=== PATIENT | male | born 1950 | race Caucasian/White ===

== ENCOUNTER 2018-08-10 10:32 | Inpatient (IN) ==
[2018-08-10] MEDS ORDERED: POTASSIUM CHLORIDE RIDER 10 MEQ in PREMIX 1 EACH IV PRN (11:00)
[2018-08-10] MEDS ORDERED: ASPIRIN 325 MG TABLET PO ONE (11:00)
[2018-08-10] MEDS ORDERED: SODIUM CHLORIDE 0.9% 1,000 ML IV SCH (11:00)
[2018-08-10] MEDS ORDERED: MAGNESIUM SULF RIDER 2 GM in PREMIX 1 EACH IV PRN ×2 (11:00→14:17)
[2018-08-10] MEDS ORDERED: diphenhydrAMINE CAP 25 MG CAPSULE PO ONE (11:00)
[2018-08-10] MEDS ORDERED: DIAZEPAM 5 MG TABLET PO ONE (11:00)
[2018-08-10] MEDS ORDERED: DIAZEPAM 5 MG TABLET ONE (12:37)
[2018-08-10] MEDS ORDERED: ASPIRIN 325 MG TABLET ONE (12:37)
[2018-08-10] MEDS ORDERED: diphenhydrAMINE CAP 25 MG CAPSULE ONE (12:37)
[2018-08-10] MEDS ORDERED: LIDOCAINE 1% 20 ML VIAL ONE (12:51)
[2018-08-10] MEDS ORDERED: fentaNYL 100 MCG/2 ML VIAL ONE (12:56)
[2018-08-10] MEDS ORDERED: MIDAZOLAM 2 MG/2 ML VIAL ONE (12:56)
[2018-08-10] MEDS ORDERED: HEPARIN 5,000 UNIT/1 ML VIAL ONE (13:23)
[2018-08-10] MEDS ORDERED: MAGNESIUM SULF RIDER 4 GM in PREMIX 1 EACH IV PRN (14:17)
[2018-08-10] MEDS ORDERED: LACTULOSE 20 GM/30 ML UDCUP PO PRN (14:21)
[2018-08-10] MEDS ORDERED: DEXTROSE 50% 25 GM/50 ML SYRINGE IV PRN (14:21)
[2018-08-10] MEDS ORDERED: ACETAMINOPHEN 325 MG TABLET PO PRN (14:21)
[2018-08-10] MEDS ORDERED: ONDANSETRON 4 MG/2 ML VIAL IV PRN (14:21)
[2018-08-10] MEDS ORDERED: GLUCAGON 1 MG VIAL IM PRN ×2 (14:21→17:41)
[2018-08-10] MEDS ORDERED: NITROGLYCERIN SL 0.4 MG TABLET SL PRN (14:28)
[2018-08-10] MEDS: PANTOPRAZOLE 40 MG TABLET PO SCH (17:20)
[2018-08-10] MEDS ORDERED: DEXTROSE 50% 25 GM/50 ML VIAL IV PRN (17:41)
[2018-08-10] MEDS: METHOCARBAMOL 500 MG TABLET PO SCH (20:47)
[2018-08-10] MEDS: ENOXAPARIN 30 MG/0.3 ML SYRINGE SUBCUT SCH (20:47)
[2018-08-10] MEDS: INSULIN REGULAR 100 UNIT/ML SUBCUT SCH (20:54)
[2018-08-11 05:03] LABS: Basophils % 0.4 % (0.0-0.8); Eosinophils # 0.1 10*3/uL (0.0-0.87); Eosinophils % 1.5 % (0.00-10.9); Hematocrit 43.8 VOL% (42.0-52.0); Immature Granulocytes % 0.3 %; Immature Granulocytes Absolute 0.03 #; Lymphocytes # 0.9 10*3/uL (1.4-4.0); Mean Corpuscular Hemoglobin 29 PG (27-34); Mean Corpuscular Volume 89.4 FL (87-102); Mean Platelet Volume 10.2 FL (9.6-12.0); Monocytes # 0.8 10*3/uL (0.11-0.8); Monocytes % 9.2 % (1.7-12.7); Neutrophils # 7.1 10*3/uL (1.4-7.4); Neutrophils % 78.6 % (38.7-73.9); Platelet Count 163 T/CUMM (130-400); White Blood Count 9.1 T/CUMM (4-12)
[2018-08-11 05:22] LABS: Albumin 3.5 G/DL (3.4-5.0); Bilirubin,Total 0.9 MG/DL (0.2-1.0); Calcium 8.5 MG/DL (8.5-10.1); Osmolality,Calculated 277.5 MOS/KG (273-304); Potassium 4.2 MMOL/L (3.5-5.1); Total Protein 6.9 G/DL (6.4-8.3)
[2018-08-11] MEDS: LEVOTHYROXINE 88 MCG TABLET PO SCH (06:50)
[2018-08-11] MEDS: INSULIN REGULAR 100 UNIT/ML SUBCUT SCH ×4 (08:04→21:18)
[2018-08-11] MEDS: METHOCARBAMOL 500 MG TABLET PO SCH ×2 (08:50→21:17)
[2018-08-11] MEDS: SIMVASTATIN 10 MG TABLET PO SCH (08:50)
[2018-08-11] MEDS: MULTIVITAMIN (CENTRUM) TABLET PO SCH (08:50)
[2018-08-11] MEDS: PANTOPRAZOLE 40 MG TABLET PO SCH (08:50)
[2018-08-11] MEDS: ASPIRIN 325 MG TABLET PO SCH (08:50)
[2018-08-11] MEDS: amLODIPine 5 MG TABLET PO SCH (08:50)
[2018-08-11] MEDS: METOPROLOL SUCCINATE XL 25 MG TABLET PO SCH (08:50)
[2018-08-11] MEDS: traMADol 50 MG TABLET PO PRN ×2 (08:51→21:16)
[2018-08-11] MEDS: ENOXAPARIN 30 MG/0.3 ML SYRINGE SUBCUT SCH ×2 (08:53→21:17)
[2018-08-11] MEDS ORDERED: DEXTROSE 50% 25 GM/50 ML SYRINGE IV PRN (08:55)
[2018-08-11] MEDS ORDERED: GLUCAGON 1 MG VIAL IM PRN (08:55)
[2018-08-11] MEDS ORDERED: SODIUM CHLORIDE 0.9% 1,000 ML IV SCH (09:00)
[2018-08-11] MEDS: CHLORHEXIDINE 0.12% ORAL RINSE 60 ML BOTTLE SWISH/SPIT SCH ×2 (09:32→21:17)
[2018-08-12] MEDS: LEVOTHYROXINE 88 MCG TABLET PO SCH (06:28)
[2018-08-12] MEDS: INSULIN REGULAR 100 UNIT/ML SUBCUT SCH ×4 (07:57→22:25)
[2018-08-12] MEDS: amLODIPine 5 MG TABLET PO SCH (09:31)
[2018-08-12] MEDS: METHOCARBAMOL 500 MG TABLET PO SCH ×2 (09:31→21:56)
[2018-08-12] MEDS: MULTIVITAMIN (CENTRUM) TABLET PO SCH (09:31)
[2018-08-12] MEDS: SIMVASTATIN 10 MG TABLET PO SCH (09:31)
[2018-08-12] MEDS: METOPROLOL SUCCINATE XL 25 MG TABLET PO SCH (09:31)
[2018-08-12] MEDS: traMADol 50 MG TABLET PO PRN ×2 (09:31→22:18)
[2018-08-12] MEDS: PANTOPRAZOLE 40 MG TABLET PO SCH (09:31)
[2018-08-12] MEDS: ASPIRIN 325 MG TABLET PO SCH (09:31)
[2018-08-12] MEDS: CHLORHEXIDINE 0.12% ORAL RINSE 60 ML BOTTLE SWISH/SPIT SCH ×2 (09:31→22:19)
[2018-08-12] MEDS: ENOXAPARIN 30 MG/0.3 ML SYRINGE SUBCUT SCH ×2 (09:33→22:18)
[2018-08-13] MEDS: INSULIN REGULAR 100 UNIT/ML SUBCUT SCH ×4 (08:16→20:12)
[2018-08-13] MEDS: ENOXAPARIN 30 MG/0.3 ML SYRINGE SUBCUT SCH ×2 (09:06→20:59)
[2018-08-13] MEDS: METOPROLOL SUCCINATE XL 25 MG TABLET PO SCH (09:07)
[2018-08-13] MEDS: MULTIVITAMIN (CENTRUM) TABLET PO SCH (09:07)
[2018-08-13] MEDS: LEVOTHYROXINE 88 MCG TABLET PO SCH (09:07)
[2018-08-13] MEDS: PANTOPRAZOLE 40 MG TABLET PO SCH (09:07)
[2018-08-13] MEDS: METHOCARBAMOL 500 MG TABLET PO SCH ×2 (09:07→20:59)
[2018-08-13] MEDS: amLODIPine 5 MG TABLET PO SCH (09:07)
[2018-08-13] MEDS: ASPIRIN 325 MG TABLET PO SCH (09:07)
[2018-08-13] MEDS: SIMVASTATIN 10 MG TABLET PO SCH (09:08)
[2018-08-13] MEDS: CHLORHEXIDINE 0.12% ORAL RINSE 60 ML BOTTLE SWISH/SPIT SCH ×2 (09:08→20:59)
[2018-08-13] MEDS: LOPERAMIDE 2 MG CAPSULE PO PRN ×2 (17:10→20:59)
[2018-08-14 05:29] LABS: Basophils % 0.2 % (0.0-0.8); Eosinophils # 0.2 10*3/uL (0.0-0.87); Hematocrit 44.1 VOL% (42.0-52.0); Hemoglobin 14.4 GM/DL (14.0-18.0); Immature Granulocytes % 0.4 %; Immature Granulocytes Absolute 0.04 #; Lymphocytes # 1.3 10*3/uL (1.4-4.0); Lymphocytes % 13.9 % (21.2-54.2); Mean Corpuscular HGB Conc 32.7 GM/DL (32-36); Mean Corpuscular Hemoglobin 29 PG (27-34); Mean Platelet Volume 10.5 FL (9.6-12.0); Monocytes # 1.1 10*3/uL (0.11-0.8); Monocytes % 12.6 % (1.7-12.7); Neutrophils # 6.4 10*3/uL (1.4-7.4); Neutrophils % 70.9 % (38.7-73.9); Platelet Count 216 T/CUMM (130-400); Red Cell Distribution Width 13.1 % (9.3-17.3); White Blood Count 9.1 T/CUMM (4-12)
[2018-08-14 05:44] LABS: Calcium 9.6 MG/DL (8.5-10.1); Osmolality,Calculated 280.4 MOS/KG (273-304); Potassium 3.9 MMOL/L (3.5-5.1)
[2018-08-14] MEDS: LEVOTHYROXINE 88 MCG TABLET PO SCH (06:30)
[2018-08-14 07:50] LABS: Allen Test Positive; Pt O2 Delivery Device Room Air
[2018-08-14 07:51] LABS: ABG Base Excess -1.4 MMOL/L (-2.5-2.5); ABG HCO3 23.3 MMOL/L (20-26); ABG Oxygen Saturation 97.7 % (95-100); ABG PCO2 38.6 MM HG (35-48); ABG PH 7.389 (7.35-7.45); ABG PO2 99.1 MM HG (80-95); ABG TCO2 19.9 MMOL/L (23-27)
[2018-08-14 08:50] LABS: Basophils % 0.2 % (0.0-0.8); Eosinophils # 0.1 10*3/uL (0.0-0.87); Eosinophils % 1.3 % (0.00-10.9); Hematocrit 43.1 VOL% (42.0-52.0); Hemoglobin 13.8 GM/DL (14.0-18.0); Immature Granulocytes % 0.4 %; Immature Granulocytes Absolute 0.04 #; Lymphocytes # 0.9 10*3/uL (1.4-4.0); Lymphocytes % 9.1 % (21.2-54.2); Mean Corpuscular Hemoglobin 29 PG (27-34); Mean Platelet Volume 9.9 FL (9.6-12.0); Neutrophils # 7.7 10*3/uL (1.4-7.4); Platelet Count 191 T/CUMM (130-400); Red Blood Count 4.79 MC/CUMM (3.8-5.5); Red Cell Distribution Width 13.2 % (9.3-17.3); White Blood Count 9.8 T/CUMM (4-12)
[2018-08-14] MEDS ORDERED: CEFUROXIME INJ 1,500 MG in SYRINGE 1 EACH IV ONE (08:55)
[2018-08-14] MEDS: METHOCARBAMOL 500 MG TABLET PO SCH ×2 (08:56→21:45)
[2018-08-14] MEDS: INSULIN REGULAR 100 UNIT/ML SUBCUT SCH ×4 (08:56→21:45)
[2018-08-14] MEDS: PANTOPRAZOLE 40 MG TABLET PO SCH (08:56)
[2018-08-14] MEDS: MULTIVITAMIN (CENTRUM) TABLET PO SCH (08:56)
[2018-08-14] MEDS: LOPERAMIDE 2 MG CAPSULE PO PRN ×3 (08:56→21:46)
[2018-08-14] MEDS: LOSARTAN 25 MG TABLET PO SCH (08:56)
[2018-08-14] MEDS: METOPROLOL SUCCINATE XL 25 MG TABLET PO SCH (08:56)
[2018-08-14] MEDS: SIMVASTATIN 10 MG TABLET PO SCH (08:56)
[2018-08-14] MEDS: ASPIRIN 325 MG TABLET PO SCH (08:56)
[2018-08-14] MEDS: CHLORHEXIDINE 0.12% ORAL RINSE 60 ML BOTTLE SWISH/SPIT SCH ×2 (08:57→21:45)
[2018-08-14] MEDS: CHLORHEXIDINE 4% SOLN 118 ML BOTTLE TOP SCH ×3 (08:57→21:45)
[2018-08-14] MEDS ORDERED: SODIUM CHLORIDE 0.9% 1,000 ML IV SCH (09:00)
[2018-08-14 09:07] LABS: Albumin 3.6 G/DL (3.4-5.0); Bilirubin,Total 0.6 MG/DL (0.2-1.0); Calcium 8.9 MG/DL (8.5-10.1); Osmolality,Calculated 278.7 MOS/KG (273-304); Total Protein 7.5 G/DL (6.4-8.3)
[2018-08-15] MEDS ORDERED: PAPAVERINE 60 MG/2 ML VIAL ONE (04:57)
[2018-08-15] MEDS ORDERED: VANCOMYCIN 1,000 MG VIAL ONE (04:57)
[2018-08-15] MEDS ORDERED: LORazepam 1 MG TABLET PO ONE (05:30)
[2018-08-15] MEDS ORDERED: PANTOPRAZOLE 40 MG TABLET PO ONE (05:30)
[2018-08-15] MEDS ORDERED: CALCIUM CHLORIDE 1,000 MG/10 ML VIAL IV ONE (05:32)
[2018-08-15] MEDS ORDERED: HEPARIN/NACL 0.9% 2 UNITS/ML 500 ML IV ONE (05:32)
[2018-08-15] MEDS ORDERED: PHENYLEPHRINE DRIP 20 MG/250 ML PREMIX IV ONE (05:32)
[2018-08-15] MEDS ORDERED: MIDAZOLAM 10 MG/2 ML VIAL ONE (05:32)
[2018-08-15] MEDS ORDERED: SUFentanil 250 MCG/5 ML AMP ONE (05:32)
[2018-08-15] MEDS ORDERED: SODIUM CHLORIDE 0.9% 100 ML IV ONE (05:33)
[2018-08-15] MEDS ORDERED: AMINOCAPROIC ACID 5,000 MG/20 ML VIAL ONE (05:33)
[2018-08-15] MEDS ORDERED: SODIUM CHLORIDE 0.9% 1,000 ML IV ONE (05:33)
[2018-08-15] MEDS ORDERED: SODIUM CHLORIDE 0.9% 250 ML IV ONE (05:33)
[2018-08-15] MEDS ORDERED: VECURONIUM 10 MG VIAL IV ONE ×2 (05:33→10:14)
[2018-08-15] MEDS ORDERED: NITROGLYCERIN DRIP 50 MG/250 ML BOTTLE IV ONE (05:33)
[2018-08-15] MEDS ORDERED: LACTATED RINGERS 1,000 ML IV ONE (05:33)
[2018-08-15] MEDS ORDERED: ETOMIDATE 40 MG/20 ML VIAL IV ONE (05:33)
[2018-08-15] MEDS ORDERED: ePHEDrine 50 MG/ML AMP ONE (05:33)
[2018-08-15] MEDS: LEVOTHYROXINE 88 MCG TABLET PO SCH ×2 (05:34→10:24)
[2018-08-15] MEDS: METOPROLOL SUCCINATE XL 25 MG TABLET PO SCH ×2 (05:34→10:25)
[2018-08-15] MEDS: LOSARTAN 25 MG TABLET PO SCH ×2 (05:34→10:25)
[2018-08-15 05:44] LABS: Basophils % 0.2 % (0.0-0.8); Eosinophils # 0.2 10*3/uL (0.0-0.87); Eosinophils % 2.2 % (0.00-10.9); Hematocrit 43.1 VOL% (42.0-52.0); Hemoglobin 13.9 GM/DL (14.0-18.0); Immature Granulocytes % 0.6 %; Immature Granulocytes Absolute 0.06 #; Lymphocytes # 0.9 10*3/uL (1.4-4.0); Lymphocytes % 9.7 % (21.2-54.2); Mean Corpuscular HGB Conc 32.3 GM/DL (32-36); Mean Corpuscular Hemoglobin 29 PG (27-34); Mean Corpuscular Volume 89.8 FL (87-102); Mean Platelet Volume 10.1 FL (9.6-12.0); Monocytes # 1.1 10*3/uL (0.11-0.8); Monocytes % 11.3 % (1.7-12.7); Neutrophils # 7.3 10*3/uL (1.4-7.4); Platelet Count 210 T/CUMM (130-400); Red Cell Distribution Width 13.2 % (9.3-17.3); White Blood Count 9.7 T/CUMM (4-12)
[2018-08-15 05:55] LABS: Osmolality,Calculated 281.4 MOS/KG (273-304); Potassium 3.6 MMOL/L (3.5-5.1)
[2018-08-15] MEDS ORDERED: VANCOMYCIN INJ 1,000 MG in SODIUM CHLORIDE 0.9% 250 ML IV ONE (06:00)
[2018-08-15] MEDS ORDERED: SODIUM CHLORIDE 0.9% 1,000 ML IV SCH (06:00)
[2018-08-15 07:51] LABS: ABG Base Excess -2.6 MMOL/L (-2.5-2.5); ABG HCO3 22.2 MMOL/L (20-26); ABG Oxygen Saturation 99.8 % (95-100); ABG PH 7.381 (7.35-7.45); ABG TCO2 19.1 MMOL/L (23-27); Glucose Heart Surgery 141 MG/DL (74-106); Hemoglobin Heart Surgery 13.3 G/DL (14.0-18.0); PH Patient Temp Arterial 7.381; Patient Temperature 37 CELCIUS; Potassium Heart/CVR 3.4 MMOL/L (3.5-5.1); Sodium Heart/CVR 138 MMOL/L (135-145)
[2018-08-15 08:12] LABS: Apearance,Urine CLOUDY (Clear); Bilirubin,Urine Negative (Negative); Blood, Urine Small mg/dL (Negative); Glucose,Urine (UA) Negative (Negative); Ketones,Urine Negative (Negative); Nitrite,Urine Negative (Negative); Protein,Urine Negative; RBC,Urine 8 /HPF (0-4); Urine Color Yellow (Yellow); Urine Specific Gravity 1.013 (1.001-1.035); Urine Urobilinogen < 2.0 EU/DL (0.2-1.0); WBC,Urine 137 /HPF (0-6)
[2018-08-15] MEDS ORDERED: PHENYLEPHRINE DRIP 40 MG/250 ML PREMIX IV ONE (08:52)
[2018-08-15] MEDS ORDERED: POTASSIUM CHLORIDE RIDER 100 ML IV ONE ×2 (08:53→11:43)
[2018-08-15] MEDS ORDERED: ALBUMIN 5% 12.5 GM/250 ML VIAL IV ONE (09:08)
[2018-08-15 10:11] LABS: Hematocrit Heart Surgery 26.5 PERCENT (42-52); Hemoglobin Heart Surgery 8.5 G/DL (14.0-18.0); PCO2 Patient Temp Venous 34.1 MM HG; PH Patient Temp Venous 7.431; PO2 Patient Temp Venous 41.9 MM HG; VBG Base Excess -1.1 MEQ/L (0-4); VBG HCO3 23.3 MEQ/L (24-28); VBG Oxygen Saturation 85.3 %; VBG PCO2 37.5 MMHG (41-51); VBG PH 7.402; VBG PO2 48.1 MMHG (17-40)
[2018-08-15] MEDS ORDERED: diphenhydrAMINE 50 MG/1 ML VIAL ONE (10:14)
[2018-08-15] MEDS ORDERED: FAMOTIDINE 20 MG/2 ML VIAL IV ONE (10:14)
[2018-08-15] MEDS: MULTIVITAMIN (CENTRUM) TABLET PO SCH (10:24)
[2018-08-15] MEDS: INSULIN REGULAR 100 UNIT/ML SUBCUT SCH ×2 (10:24→14:47)
[2018-08-15] MEDS: ASPIRIN 325 MG TABLET PO SCH (10:24)
[2018-08-15] MEDS: PANTOPRAZOLE 40 MG TABLET PO SCH (10:25)
[2018-08-15] MEDS: SIMVASTATIN 10 MG TABLET PO SCH (10:25)
[2018-08-15] MEDS: METHOCARBAMOL 500 MG TABLET PO SCH (10:25)
[2018-08-15] MEDS: CHLORHEXIDINE 0.12% ORAL RINSE 60 ML BOTTLE SWISH/SPIT SCH ×2 (10:25→22:06)
[2018-08-15 10:39] LABS: Hemoglobin Heart Surgery 9.4 G/DL (14.0-18.0); PCO2 Patient Temp Venous 29.2 MM HG; PH Patient Temp Venous 7.472; Potassium Heart/CVR 3.5 MMOL/L (3.5-5.1); VBG Base Excess -1.6 MEQ/L (0-4); VBG Oxygen Saturation 89.3 %; VBG PCO2 33.7 MMHG (41-51); VBG PH 7.428; VBG PO2 52.8 MMHG (17-40)
[2018-08-15 11:11] LABS: Hematocrit Heart Surgery 27.5 PERCENT (42-52); Hemoglobin Heart Surgery 8.8 G/DL (14.0-18.0); PCO2 Patient Temp Venous 36.6 MM HG; PH Patient Temp Venous 7.432; Potassium Heart/CVR 3.9 MMOL/L (3.5-5.1); VBG Base Excess 0.4 MEQ/L (0-4); VBG HCO3 24.4 MEQ/L (24-28); VBG Oxygen Saturation 74.5 %; VBG PCO2 36.6 MMHG (41-51); VBG PH 7.432
[2018-08-15 11:26] LABS: HIV Antigen/Antibody Result Nonreactive (Nonreactive); Hepatitis B Surface Ag Quant 0.56 Index; Hepatitis B Surface Ag Result Negative (Negative); Hepatitis C Virus Ab Quant 0.03 Index; Hepatitis C Virus Ab Result Negative (Negative)
[2018-08-15 11:36] LABS: ABG Base Excess -1.1 MMOL/L (-2.5-2.5); ABG HCO3 23.5 MMOL/L (20-26); ABG Oxygen Saturation 99.8 % (95-100); ABG PCO2 38.4 MM HG (35-48); ABG PH 7.395 (7.35-7.45); ABG TCO2 21.7 MMOL/L (23-27); Glucose Heart Surgery 238 MG/DL (74-106); Hematocrit Heart Surgery 27.7 PERCENT (42-52); Hemoglobin Heart Surgery 8.9 G/DL (14.0-18.0); Ionized Calcium Arterial 1.12 MMOL/L (1.21-1.46); PCO2 Patient Temp Arterial 38.4 MMHG; PH Patient Temp Arterial 7.395; Patient Temperature 37 CELCIUS; Potassium Heart/CVR 3.3 MMOL/L (3.5-5.1); Sodium Heart/CVR 135 MMOL/L (135-145)
[2018-08-15] MEDS ORDERED: PROTAMINE SULFATE 250 MG/25 ML VIAL IV ONE (11:36)
[2018-08-15] MEDS ORDERED: DEXTROSE 5% KCL 20 MEQ 20 MEQ/1,000 ML BAG IV ONE (11:36)
[2018-08-15] MEDS ORDERED: SODIUM BICARBONATE 50 MEQ/50 ML VIAL IV ONE (11:36)
[2018-08-15] MEDS ORDERED: MAGNESIUM SULFATE 10 GM/20 ML VIAL IV ONE (11:36)
[2018-08-15] MEDS ORDERED: ALBUMIN 25% 25 GM/100 ML VIAL IV ONE (11:36)
[2018-08-15] MEDS ORDERED: MANNITOL 100 GM/500 ML BAG IV ONE (11:36)
[2018-08-15] MEDS ORDERED: HEPARIN 10,000 UNIT/10 ML VIAL ONE (11:37)
[2018-08-15] MEDS ORDERED: methylPREDNISolone SOD SUC 1,000 MG/8 ML VIAL ONE (11:37)
[2018-08-15] MEDS ORDERED: PROTAMINE SULFATE 50 MG/5 ML VIAL IV ONE ×2 (11:37→12:22)
[2018-08-15] MEDS ORDERED: FUROSEMIDE 20 MG/2 ML VIAL ONE (11:37)
[2018-08-15] MEDS ORDERED: POTASSIUM CHLORIDE 20 MEQ/10 ML VIAL ONE (11:43)
[2018-08-15] MEDS ORDERED: ESMOLOL 100 MG/10 ML VIAL IV ONE (12:30)
[2018-08-15] MEDS ORDERED: SEVOFLURANE 1 UNIT/15 MINUTE INH ONE (12:30)
[2018-08-15] MEDS: LACTATED RINGERS 1,000 ML IV PRN ×3 (12:30→18:00)
[2018-08-15] MEDS ORDERED: PHENYLEPHRINE DRIP 40 MG/250 ML PREMIX IV PRN (12:33)
[2018-08-15] MEDS ORDERED: CALCIUM CHLORIDE 1,000 MG/10 ML SYRINGE IV PRN (12:33)
[2018-08-15] MEDS ORDERED: DEXTROSE 50% 25 GM/50 ML SYRINGE IV PRN ×2 (12:33)
[2018-08-15] MEDS ORDERED: MAGNESIUM SULF RIDER 4 GM in PREMIX 1 EACH IV PRN (12:33)
[2018-08-15] MEDS ORDERED: MORPHINE 10 MG/1 ML VIAL IV PRN (12:33)
[2018-08-15] MEDS ORDERED: ACETAMINOPHEN 650 MG SUPP RECTAL PRN (12:33)
[2018-08-15] MEDS ORDERED: SODIUM CHLORIDE 0.45% 1,000 ML IV SCH ×2 (12:33)
[2018-08-15] MEDS ORDERED: INSULIN REGULAR DRIP 100 ML IV SCH (12:33)
[2018-08-15] MEDS ORDERED: INSULIN REGULAR 100 UNIT/ML IV PRN (12:33)
[2018-08-15] MEDS ORDERED: VECURONIUM 10 MG VIAL IV PRN ×2 (12:33)
[2018-08-15] MEDS ORDERED: ONDANSETRON 4 MG/2 ML VIAL IV PRN (12:33)
[2018-08-15] MEDS ORDERED: MAGNESIUM SULF RIDER 2 GM in PREMIX 1 EACH IV PRN (12:33)
[2018-08-15] MEDS ORDERED: MIDAZOLAM 10 MG/2 ML VIAL IV PRN (12:33)
[2018-08-15] MEDS ORDERED: INSULIN REGULAR 100 UNIT/ML IV ONE (12:33)
[2018-08-15] MEDS ORDERED: NITROPRUSSIDE 100 MG in DEXTROSE 5% 250 ML IV PRN (12:33)
[2018-08-15] MEDS ORDERED: LACTATED RINGERS 250 ML IV PRN (12:33)
[2018-08-15] MEDS ORDERED: MIDAZOLAM 2 MG/2 ML VIAL IV PRN (12:33)
[2018-08-15 12:38] LABS: ABG HCO3 24.5 MMOL/L (20-26); ABG Oxygen Saturation 99.3 % (95-100); ABG PCO2 36.9 MM HG (35-48); ABG PH 7.424 (7.35-7.45); ABG TCO2 21.9 MMOL/L (23-27); Glucose Heart Surgery 216 MG/DL (74-106); Hematocrit Heart Surgery 30.8 PERCENT (42-52); Potassium Heart/CVR 3.5 MMOL/L (3.5-5.1)
[2018-08-15 12:44] LABS: Basophils % 0.1 % (0.0-0.8); Eosinophils # 0.1 10*3/uL (0.0-0.87); Eosinophils % 0.7 % (0.00-10.9); Hematocrit 28.4 VOL% (42.0-52.0); Hemoglobin 9.4 GM/DL (14.0-18.0); Immature Granulocytes % 0.5 %; Immature Granulocytes Absolute 0.05 #; Lymphocytes # 0.4 10*3/uL (1.4-4.0); Lymphocytes % 4.2 % (21.2-54.2); Mean Corpuscular HGB Conc 33.1 GM/DL (32-36); Mean Corpuscular Hemoglobin 30 PG (27-34); Mean Platelet Volume 10.1 FL (9.6-12.0); Monocytes # 0.8 10*3/uL (0.11-0.8); Monocytes % 8.7 % (1.7-12.7); Neutrophils # 8.3 10*3/uL (1.4-7.4); Neutrophils % 85.8 % (38.7-73.9); Platelet Count 182 T/CUMM (130-400); Red Blood Count 3.19 MC/CUMM (3.8-5.5); Red Cell Distribution Width 13.2 % (9.3-17.3); White Blood Count 9.7 T/CUMM (4-12)
[2018-08-15 12:54] LABS: INR 1.1; PT Patient Result 11.8 SECS; Partial Thromboplastin Time 23.3 SECS (0-40)
[2018-08-15] MEDS: POTASSIUM CHLORIDE RIDER 20 MEQ in PREMIX 1 EACH IV PRN ×6 (13:00→21:05)
[2018-08-15 13:06] LABS: Anisocytosis Slight; Band Neutrophils 18 % (0-10); Lymphocytes 2 % (20-55); Platelet Estimate Normal; Segmented Neutrophils 76 % (50-85); Total Cells Counted 100
[2018-08-15] MEDS: KETOROLAC 30 MG/1 ML VIAL IV SCH ×2 (13:08→18:27)
[2018-08-15 13:14] LABS: Albumin 3.5 G/DL (3.4-5.0); Bilirubin,Total 0.9 MG/DL (0.2-1.0); Calcium 8.7 MG/DL (8.5-10.1); Osmolality,Calculated 283.5 MOS/KG (273-304); Potassium 3.5 MMOL/L (3.5-5.1); Total Protein 6.3 G/DL (6.4-8.3)
[2018-08-15 13:18] LABS: CKMB % 13.6 %
[2018-08-15 13:19] LABS: Troponin I 8.04 NG/ML (0.00-0.045)
[2018-08-15] MEDS: POTASSIUM CHLORIDE RIDER 10 MEQ in PREMIX 1 EACH IV PRN (13:35)
[2018-08-15 14:42] LABS: ABG Base Excess 0.9 MMOL/L (-2.5-2.5); ABG HCO3 25.2 MMOL/L (20-26); ABG Oxygen Saturation 99.2 % (95-100); ABG PCO2 36.6 MM HG (35-48); ABG PH 7.439 (7.35-7.45); ABG TCO2 22.4 MMOL/L (23-27); Glucose Heart Surgery 186 MG/DL (74-106); Hematocrit Heart Surgery 31.5 PERCENT (42-52); Hemoglobin Heart Surgery 10.2 G/DL (14.0-18.0); Potassium Heart/CVR 3.3 MMOL/L (3.5-5.1)
[2018-08-15] MEDS: ALBUMIN 5% 12.5 GM in PREMIX 1 EACH IV PRN ×2 (15:05→21:04)
[2018-08-15] MEDS: MORPHINE 4 MG/1 ML VIAL IV PRN ×2 (16:14→22:04)
[2018-08-15 16:49] LABS: ABG Base Excess 0.4 MMOL/L (-2.5-2.5); ABG HCO3 24.8 MMOL/L (20-26); ABG Oxygen Saturation 99.3 % (95-100); ABG PCO2 36.8 MM HG (35-48); ABG PH 7.431 (7.35-7.45); ABG TCO2 22.3 MMOL/L (23-27); Glucose Heart Surgery 164 MG/DL (74-106); Hematocrit Heart Surgery 30.3 PERCENT (42-52); Hemoglobin Heart Surgery 9.8 G/DL (14.0-18.0)
[2018-08-15 18:43] LABS: ABG Base Excess 0.4 MMOL/L (-2.5-2.5); ABG HCO3 24.8 MMOL/L (20-26); ABG Oxygen Saturation 99.3 % (95-100); ABG PCO2 37.4 MM HG (35-48); ABG PH 7.425 (7.35-7.45); Glucose Heart Surgery 152 MG/DL (74-106); Hematocrit Heart Surgery 33.3 PERCENT (42-52); Hemoglobin Heart Surgery 10.8 G/DL (14.0-18.0)
[2018-08-15] MEDS ORDERED: AMIODARONE INJ 150 MG in DEXTROSE 5% 100 ML IV ONE (19:37)
[2018-08-15] MEDS ORDERED: AMIODARONE INJ 450 MG in DEXTROSE 5% 241 ML IV SCH (20:00)
[2018-08-15 20:49] LABS: ABG Base Excess 0.2 MMOL/L (-2.5-2.5); ABG HCO3 24.6 MMOL/L (20-26); ABG Oxygen Saturation 99.5 % (95-100); ABG PCO2 36.7 MM HG (35-48); ABG PH 7.427 (7.35-7.45); ABG TCO2 21.7 MMOL/L (23-27); Glucose Heart Surgery 165 MG/DL (74-106); Hematocrit Heart Surgery 33.6 PERCENT (42-52); Hemoglobin Heart Surgery 10.9 G/DL (14.0-18.0); Potassium Heart/CVR 4.2 MMOL/L (3.5-5.1)
[2018-08-15 21:28] LABS: CKMB % 7.8 %; Troponin I 8.12 NG/ML (0.00-0.045)
[2018-08-15 23:36] LABS: ABG Base Excess -0.2 MMOL/L (-2.5-2.5); ABG HCO3 24.3 MMOL/L (20-26); ABG Oxygen Saturation 99.3 % (95-100); ABG PCO2 35.8 MM HG (35-48); ABG TCO2 21.3 MMOL/L (23-27); Glucose Heart Surgery 139 MG/DL (74-106); Hematocrit Heart Surgery 33.4 PERCENT (42-52); Hemoglobin Heart Surgery 10.8 G/DL (14.0-18.0)
[2018-08-16] MEDS ORDERED: FUROSEMIDE 40 MG/4 ML VIAL IV ONE
[2018-08-16] MEDS: KETOROLAC 30 MG/1 ML VIAL IV SCH ×4 (00:02→18:50)
[2018-08-16] MEDS: POTASSIUM CHLORIDE RIDER 20 MEQ in PREMIX 1 EACH IV PRN ×2 (00:05→05:32)
[2018-08-16] MEDS ORDERED: VANCOMYCIN INJ 1,000 MG in SODIUM CHLORIDE 0.9% 250 ML IV SCH (00:22)
[2018-08-16 00:23] LABS: ABG Base Excess -0.1 MMOL/L (-2.5-2.5); ABG HCO3 24.3 MMOL/L (20-26); ABG Oxygen Saturation 98.5 % (95-100); ABG PCO2 37.1 MM HG (35-48); ABG TCO2 21.6 MMOL/L (23-27); Glucose Heart Surgery 138 MG/DL (74-106); Hematocrit Heart Surgery 33.5 PERCENT (42-52); Hemoglobin Heart Surgery 10.9 G/DL (14.0-18.0); Potassium Heart/CVR 4.2 MMOL/L (3.5-5.1)
[2018-08-16] MEDS ORDERED: AMIODARONE INJ 450 MG in DEXTROSE 5% 241 ML IV SCH (02:15)
[2018-08-16 05:06] LABS: ABG Base Excess 1.2 MMOL/L (-2.5-2.5); ABG HCO3 25.4 MMOL/L (20-26); ABG Oxygen Saturation 98.2 % (95-100); ABG PCO2 35.8 MM HG (35-48); ABG PH 7.449 (7.35-7.45); ABG TCO2 22.3 MMOL/L (23-27); Glucose Heart Surgery 116 MG/DL (74-106); Hematocrit Heart Surgery 33.7 PERCENT (42-52); Hemoglobin Heart Surgery 10.9 G/DL (14.0-18.0); Potassium Heart/CVR 3.8 MMOL/L (3.5-5.1)
[2018-08-16] MEDS ORDERED: PHENOL 1.4% THROAT SPRAY 177 ML BOTTLE PO PRN (05:26)
[2018-08-16 05:32] LABS: Basophils % 0.1 % (0.0-0.8); Hematocrit 31.7 VOL% (42.0-52.0); Hemoglobin 10.5 GM/DL (14.0-18.0); Immature Granulocytes % 0.6 %; Immature Granulocytes Absolute 0.08 #; Lymphocytes # 0.6 10*3/uL (1.4-4.0); Lymphocytes % 4.2 % (21.2-54.2); Mean Corpuscular HGB Conc 33.1 GM/DL (32-36); Mean Corpuscular Hemoglobin 30 PG (27-34); Mean Corpuscular Volume 89.3 FL (87-102); Mean Platelet Volume 10.9 FL (9.6-12.0); Monocytes % 7.2 % (1.7-12.7); Neutrophils # 12.7 10*3/uL (1.4-7.4); Neutrophils % 87.9 % (38.7-73.9); Platelet Count 184 T/CUMM (130-400); Red Blood Count 3.55 MC/CUMM (3.8-5.5); Red Cell Distribution Width 13.8 % (9.3-17.3); White Blood Count 14.4 T/CUMM (4-12)
[2018-08-16 05:50] LABS: Albumin 3.7 G/DL (3.4-5.0); Bilirubin,Direct 0.19 MG/DL (0.0-0.20); Bilirubin,Total 1.2 MG/DL (0.2-1.0); Calcium 8.1 MG/DL (8.5-10.1); Osmolality,Calculated 279.4 MOS/KG (273-304); Potassium 3.8 MMOL/L (3.5-5.1); Total Protein 6.7 G/DL (6.4-8.3)
[2018-08-16 05:53] LABS: CKMB % 6.1 %
[2018-08-16 06:15] LABS: Band Neutrophils 7 % (0-10); Lymphocytes 3 % (20-55); Segmented Neutrophils 87 % (50-85); Total Cells Counted 100
[2018-08-16 06:16] LABS: Hypochromasia 1+; Ovalocytes Slight; Platelet Estimate Adequate
[2018-08-16] MEDS: POTASSIUM CHLORIDE RIDER 10 MEQ in PREMIX 1 EACH IV PRN (06:23)
[2018-08-16] MEDS ORDERED: INSULIN REGULAR 100 UNIT/ML SUBCUT SCH (08:00)
[2018-08-16] MEDS ORDERED: DEXTROSE 50% 25 GM/50 ML VIAL IV PRN (08:34)
[2018-08-16] MEDS ORDERED: ONDANSETRON 4 MG/2 ML VIAL IV PRN (08:34)
[2018-08-16] MEDS ORDERED: DEXTROSE 50% 25 GM/50 ML SYRINGE IV PRN (08:34)
[2018-08-16] MEDS ORDERED: POTASSIUM CHLORIDE 20 MEQ TABLET PO PRN (08:34)
[2018-08-16] MEDS ORDERED: MAGNESIUM SULF RIDER 4 GM in PREMIX 1 EACH IV PRN (08:34)
[2018-08-16] MEDS ORDERED: MAGNESIUM SULF RIDER 2 GM in PREMIX 1 EACH IV PRN (08:34)
[2018-08-16] MEDS ORDERED: ALUMINUM/MAGNES/SIMETH MAX STR 30 ML UDCUP PO PRN (08:34)
[2018-08-16] MEDS ORDERED: MAGNESIUM HYDROXIDE SUSP 30 ML UDCUP PO PRN (08:34)
[2018-08-16] MEDS ORDERED: GLUCAGON 1 MG VIAL IM PRN ×2 (08:34)
[2018-08-16] MEDS ORDERED: ACETAMINOPHEN 325 MG TABLET PO PRN (08:34)
[2018-08-16] MEDS ORDERED: DOCUSATE SODIUM 100 MG CAPSULE PO SCH (09:00)
[2018-08-16] MEDS ORDERED: SIMVASTATIN 10 MG TABLET PO SCH (09:00)
[2018-08-16] MEDS ORDERED: METOPROLOL SUCCINATE XL 25 MG TABLET PO SCH (09:00)
[2018-08-16] MEDS: MULTIVITAMIN (CENTRUM) TABLET PO SCH (10:25)
[2018-08-16] MEDS: ASPIRIN EC 325 MG TABLET PO SCH (10:25)
[2018-08-16] MEDS: LOSARTAN 25 MG TABLET PO SCH (10:26)
[2018-08-16] MEDS: amLODIPine 5 MG TABLET PO SCH (10:27)
[2018-08-16] MEDS: PANTOPRAZOLE 40 MG TABLET PO SCH (10:27)
[2018-08-16] MEDS: AMIODARONE 200 MG TABLET PO SCH ×2 (10:28→21:57)
[2018-08-16] MEDS: FERROUS SULFATE 325 MG TABLET PO SCH (10:28)
[2018-08-16] MEDS: SODIUM CHLOR 0.45% KCL 20 MEQ 20 MEQ/1,000 ML BAG IV SCH (10:28)
[2018-08-16] MEDS: METHOCARBAMOL 500 MG TABLET PO SCH ×2 (11:00→21:58)
[2018-08-16] MEDS: CHLORHEXIDINE 0.12% ORAL RINSE 60 ML BOTTLE SWISH/SPIT SCH ×3 (11:10→21:58)
[2018-08-16] MEDS: CLINDAMYCIN INJ 600 MG in PREMIX 1 EACH IV SCH ×2 (11:42→18:50)
[2018-08-16] MEDS: INSULIN REGULAR 100 UNIT/ML SUBCUT SCH ×2 (18:49→21:58)
[2018-08-17] MEDS: INSULIN REGULAR 100 UNIT/ML SUBCUT SCH ×6 (01:45→21:50)
[2018-08-17] MEDS: CLINDAMYCIN INJ 600 MG in PREMIX 1 EACH IV SCH ×3 (02:32→17:28)
[2018-08-17 05:28] LABS: Basophils % 0.1 % (0.0-0.8); Hemoglobin 9.6 GM/DL (14.0-18.0); Immature Granulocytes % 0.7 %; Immature Granulocytes Absolute 0.11 #; Lymphocytes # 0.6 10*3/uL (1.4-4.0); Lymphocytes % 3.9 % (21.2-54.2); Mean Corpuscular HGB Conc 33.1 GM/DL (32-36); Mean Corpuscular Hemoglobin 30 PG (27-34); Mean Corpuscular Volume 90.6 FL (87-102); Mean Platelet Volume 11.2 FL (9.6-12.0); Monocytes # 1.6 10*3/uL (0.11-0.8); Monocytes % 9.9 % (1.7-12.7); Neutrophils # 13.5 10*3/uL (1.4-7.4); Neutrophils % 85.4 % (38.7-73.9); Platelet Count 175 T/CUMM (130-400); Red Cell Distribution Width 14.2 % (9.3-17.3); White Blood Count 15.8 T/CUMM (4-12)
[2018-08-17 05:41] LABS: Albumin 2.9 G/DL (3.4-5.0); Bilirubin,Direct 0.12 MG/DL (0.0-0.20); Bilirubin,Indirect 0.4 MG/DL (0.0-1.0); Bilirubin,Total 0.5 MG/DL (0.2-1.0); CKMB % 2.3 %; Osmolality,Calculated 279.8 MOS/KG (273-304); Potassium 4.2 MMOL/L (3.5-5.1); Total Protein 5.9 G/DL (6.4-8.3)
[2018-08-17 05:44] LABS: Troponin I 2.82 NG/ML (0.00-0.045)
[2018-08-17] MEDS ORDERED: FUROSEMIDE 40 MG/4 ML VIAL IV ONE (06:00)
[2018-08-17 06:03] LABS: Lymphocytes 3 % (20-55); Platelet Estimate Adequate; Polychromasia Slight; Segmented Neutrophils 95 % (50-85); Total Cells Counted 100
[2018-08-17] MEDS: LEVOTHYROXINE 88 MCG TABLET PO SCH (06:55)
[2018-08-17] MEDS ORDERED: MAGNESIUM SULF RIDER 4 GM in PREMIX 1 EACH IV PRN (08:26)
[2018-08-17] MEDS ORDERED: MAGNESIUM SULF RIDER 2 GM in PREMIX 1 EACH IV PRN (08:26)
[2018-08-17] MEDS: SODIUM CHLOR 0.45% KCL 20 MEQ 20 MEQ/1,000 ML BAG IV SCH (08:46)
[2018-08-17] MEDS: MULTIVITAMIN (CENTRUM) TABLET PO SCH (08:46)
[2018-08-17] MEDS: METHOCARBAMOL 500 MG TABLET PO SCH ×2 (08:46→21:07)
[2018-08-17] MEDS: FERROUS SULFATE 325 MG TABLET PO SCH (08:46)
[2018-08-17] MEDS: PANTOPRAZOLE 40 MG TABLET PO SCH (08:47)
[2018-08-17] MEDS: AMIODARONE 200 MG TABLET PO SCH ×2 (08:47→21:07)
[2018-08-17] MEDS: ASPIRIN EC 325 MG TABLET PO SCH (08:47)
[2018-08-17] MEDS: CARVEDILOL 6.25 MG TABLET PO SCH ×2 (08:47→21:07)
[2018-08-17] MEDS: amLODIPine 5 MG TABLET PO SCH (08:48)
[2018-08-17] MEDS: CHLORHEXIDINE 0.12% ORAL RINSE 60 ML BOTTLE SWISH/SPIT SCH ×2 (08:48→21:07)
[2018-08-17] MEDS: LOSARTAN 25 MG TABLET PO SCH (08:48)
[2018-08-17] MEDS: MAGNESIUM CHLORIDE 64 MG TABLET PO SCH ×2 (15:42→21:07)
[2018-08-17] MEDS ORDERED: AMIODARONE INJ 100 MG in DEXTROSE 5% 100 ML IV ONE (23:48)
[2018-08-18] MEDS: INSULIN REGULAR 100 UNIT/ML SUBCUT SCH ×6 (00:40→22:35)
[2018-08-18] MEDS: ZALEPLON 5 MG CAPSULE PO PRN ×2 (00:50→22:35)
[2018-08-18] MEDS: CLINDAMYCIN INJ 600 MG in PREMIX 1 EACH IV SCH ×3 (01:50→17:43)
[2018-08-18 05:04] LABS: Basophils % 0.1 % (0.0-0.8); Eosinophils # 0.1 10*3/uL (0.0-0.87); Eosinophils % 0.3 % (0.00-10.9); Hematocrit 34.2 VOL% (42.0-52.0); Hemoglobin 11.3 GM/DL (14.0-18.0); Immature Granulocytes % 0.4 %; Immature Granulocytes Absolute 0.06 #; Lymphocytes # 1.1 10*3/uL (1.4-4.0); Mean Corpuscular Hemoglobin 30 PG (27-34); Mean Corpuscular Volume 89.8 FL (87-102); Monocytes # 1.7 10*3/uL (0.11-0.8); Monocytes % 11.2 % (1.7-12.7); Neutrophils # 12.5 10*3/uL (1.4-7.4); Platelet Count 218 T/CUMM (130-400); Red Blood Count 3.81 MC/CUMM (3.8-5.5); Red Cell Distribution Width 14.5 % (9.3-17.3); White Blood Count 15.5 T/CUMM (4-12)
[2018-08-18 05:25] LABS: Alanine Aminotransferase 32 U/L (16-61); Albumin 3.1 G/DL (3.4-5.0); Alkaline Phosphatase 61 U/L (45-117); Aspartate Amino Transferase 35 U/L (0-37); Bilirubin,Indirect 0.7 MG/DL (0.0-1.0); Blood Urea Nitrogen 23 MG/DL (7-18); Calcium 8.2 MG/DL (8.5-10.1); Glucose 133 MG/DL (74-106); Osmolality,Calculated 284.4 MOS/KG (273-304); Potassium 3.8 MMOL/L (3.5-5.1); Sodium 140 MMOL/L (136-145); Total Protein 6.5 G/DL (6.4-8.3)
[2018-08-18] MEDS: LEVOTHYROXINE 88 MCG TABLET PO SCH (06:49)
[2018-08-18] MEDS: AMIODARONE INJ 450 MG in DEXTROSE 5% 241 ML IV SCH ×2 (08:40→23:00)
[2018-08-18] MEDS: MULTIVITAMIN (CENTRUM) TABLET PO SCH (08:45)
[2018-08-18] MEDS: MAGNESIUM CHLORIDE 64 MG TABLET PO SCH ×2 (08:45→22:36)
[2018-08-18] MEDS: METHOCARBAMOL 500 MG TABLET PO SCH ×2 (08:45→22:36)
[2018-08-18] MEDS: LOSARTAN 25 MG TABLET PO SCH (08:46)
[2018-08-18] MEDS: CARVEDILOL 6.25 MG TABLET PO SCH ×2 (08:46→22:37)
[2018-08-18] MEDS: DILTIAZEM 60 MG TABLET PO SCH ×4 (08:46→22:36)
[2018-08-18] MEDS: APIXABAN 5 MG TABLET PO SCH ×2 (08:46→22:36)
[2018-08-18] MEDS: ASPIRIN EC 325 MG TABLET PO SCH (08:46)
[2018-08-18] MEDS: PANTOPRAZOLE 40 MG TABLET PO SCH (08:46)
[2018-08-18] MEDS: FERROUS SULFATE 325 MG TABLET PO SCH (08:46)
[2018-08-18] MEDS: AMIODARONE 200 MG TABLET PO SCH (08:46)
[2018-08-18] MEDS: CHLORHEXIDINE 0.12% ORAL RINSE 60 ML BOTTLE SWISH/SPIT SCH ×2 (08:47→22:36)
[2018-08-19] MEDS: AMIODARONE INJ 450 MG in DEXTROSE 5% 241 ML IV SCH (00:26)
[2018-08-19] MEDS: INSULIN REGULAR 100 UNIT/ML SUBCUT SCH ×6 (00:29→21:26)
[2018-08-19] MEDS: CLINDAMYCIN INJ 600 MG in PREMIX 1 EACH IV SCH ×3 (03:22→17:16)
[2018-08-19] MEDS: LEVOTHYROXINE 88 MCG TABLET PO SCH (06:48)
[2018-08-19] MEDS: AMIODARONE 200 MG TABLET PO SCH (09:18)
[2018-08-19] MEDS: CARVEDILOL 6.25 MG TABLET PO SCH ×2 (09:20→21:25)
[2018-08-19] MEDS: LOSARTAN 25 MG TABLET PO SCH (09:20)
[2018-08-19] MEDS: MULTIVITAMIN (CENTRUM) TABLET PO SCH (09:22)
[2018-08-19] MEDS: MAGNESIUM CHLORIDE 64 MG TABLET PO SCH ×2 (09:22→21:25)
[2018-08-19] MEDS: FERROUS SULFATE 325 MG TABLET PO SCH (09:23)
[2018-08-19] MEDS: PANTOPRAZOLE 40 MG TABLET PO SCH (09:23)
[2018-08-19] MEDS: ASPIRIN EC 325 MG TABLET PO SCH (09:23)
[2018-08-19] MEDS: METHOCARBAMOL 500 MG TABLET PO SCH ×2 (09:23→21:30)
[2018-08-19] MEDS: APIXABAN 5 MG TABLET PO SCH ×2 (09:25→21:25)
[2018-08-19] MEDS: CHLORHEXIDINE 0.12% ORAL RINSE 60 ML BOTTLE SWISH/SPIT SCH ×2 (09:37→21:26)
[2018-08-19] MEDS: ZALEPLON 5 MG CAPSULE PO PRN (21:24)
[2018-08-20] MEDS: INSULIN REGULAR 100 UNIT/ML SUBCUT SCH ×6 (02:06→22:00)
[2018-08-20] MEDS: CLINDAMYCIN INJ 600 MG in PREMIX 1 EACH IV SCH ×3 (02:33→17:33)
[2018-08-20 05:32] LABS: Basophils % 0.2 % (0.0-0.8); Eosinophils # 0.3 10*3/uL (0.0-0.87); Eosinophils % 2.9 % (0.00-10.9); Hematocrit 35.2 VOL% (42.0-52.0); Hemoglobin 11.6 GM/DL (14.0-18.0); Immature Granulocytes Absolute 0.11 #; Lymphocytes # 1.6 10*3/uL (1.4-4.0); Lymphocytes % 14.6 % (21.2-54.2); Mean Corpuscular Hemoglobin 30 PG (27-34); Mean Platelet Volume 10.3 FL (9.6-12.0); Monocytes % 9.3 % (1.7-12.7); Neutrophils # 7.7 10*3/uL (1.4-7.4); Platelet Count 258 T/CUMM (130-400); Red Blood Count 3.91 MC/CUMM (3.8-5.5); Red Cell Distribution Width 14.3 % (9.3-17.3); White Blood Count 10.7 T/CUMM (4-12)
[2018-08-20 05:57] LABS: Alanine Aminotransferase 36 U/L (16-61); Albumin 2.9 G/DL (3.4-5.0); Alkaline Phosphatase 60 U/L (45-117); Aspartate Amino Transferase 22 U/L (0-37); Bilirubin,Indirect 1.1 MG/DL (0.0-1.0); Blood Urea Nitrogen 19 MG/DL (7-18); Calcium 8.6 MG/DL (8.5-10.1); Glucose 124 MG/DL (74-106); Osmolality,Calculated 281.4 MOS/KG (273-304); Potassium 3.9 MMOL/L (3.5-5.1); Sodium 140 MMOL/L (136-145); Total Protein 6.3 G/DL (6.4-8.3)
[2018-08-20 05:58] LABS: Troponin I 0.488 NG/ML (0.00-0.045)
[2018-08-20 06:14] LABS: Eosinophils 2 % (0-10); Lymphocytes 13 % (20-55); Platelet Estimate Normal; Segmented Neutrophils 80 % (50-85); Total Cells Counted 100
[2018-08-20 06:15] LABS: Polychromasia Few
[2018-08-20] MEDS: LEVOTHYROXINE 88 MCG TABLET PO SCH (07:29)
[2018-08-20] MEDS: AMIODARONE 200 MG TABLET PO SCH (09:08)
[2018-08-20] MEDS: CARVEDILOL 6.25 MG TABLET PO SCH ×2 (09:08→21:56)
[2018-08-20] MEDS: ASPIRIN EC 325 MG TABLET PO SCH (09:08)
[2018-08-20] MEDS: APIXABAN 5 MG TABLET PO SCH ×2 (09:08→21:57)
[2018-08-20] MEDS: MULTIVITAMIN (CENTRUM) TABLET PO SCH (09:08)
[2018-08-20] MEDS: FERROUS SULFATE 325 MG TABLET PO SCH (09:08)
[2018-08-20] MEDS: LOSARTAN 25 MG TABLET PO SCH (09:08)
[2018-08-20] MEDS: PANTOPRAZOLE 40 MG TABLET PO SCH (09:09)
[2018-08-20] MEDS: METHOCARBAMOL 500 MG TABLET PO SCH ×2 (09:09→21:56)
[2018-08-20] MEDS: MAGNESIUM CHLORIDE 64 MG TABLET PO SCH ×2 (09:09→21:56)
[2018-08-20] MEDS: CHLORHEXIDINE 0.12% ORAL RINSE 60 ML BOTTLE SWISH/SPIT SCH ×2 (09:09→21:57)
[2018-08-20] MEDS: oxyCODONE/ACETAMINOPHEN 5-325 MG TABLET PO PRN (13:54)
[2018-08-20] MEDS ORDERED: ROSUVASTATIN 20 MG TABLET PO SCH (21:00)
[2018-08-21] MEDS: INSULIN REGULAR 100 UNIT/ML SUBCUT SCH ×4 (02:05→13:20)
[2018-08-21] MEDS: CLINDAMYCIN INJ 600 MG in PREMIX 1 EACH IV SCH ×2 (02:54→10:50)
[2018-08-21 05:28] LABS: Basophils % 0.3 % (0.0-0.8); Eosinophils # 0.3 10*3/uL (0.0-0.87); Eosinophils % 2.2 % (0.00-10.9); Hematocrit 37.2 VOL% (42.0-52.0); Hemoglobin 12.2 GM/DL (14.0-18.0); Immature Granulocytes % 0.9 %; Immature Granulocytes Absolute 0.11 #; Lymphocytes # 1.7 10*3/uL (1.4-4.0); Lymphocytes % 13.3 % (21.2-54.2); Mean Corpuscular HGB Conc 32.8 GM/DL (32-36); Mean Corpuscular Hemoglobin 29 PG (27-34); Mean Corpuscular Volume 89.2 FL (87-102); Mean Platelet Volume 9.6 FL (9.6-12.0); Monocytes # 1.1 10*3/uL (0.11-0.8); Monocytes % 8.6 % (1.7-12.7); Neutrophils # 9.5 10*3/uL (1.4-7.4); Neutrophils % 74.7 % (38.7-73.9); Platelet Count 321 T/CUMM (130-400); Red Blood Count 4.17 MC/CUMM (3.8-5.5); Red Cell Distribution Width 14.2 % (9.3-17.3); White Blood Count 12.7 T/CUMM (4-12)
[2018-08-21 05:39] LABS: Alanine Aminotransferase 41 U/L (16-61); Albumin 2.9 G/DL (3.4-5.0); Alkaline Phosphatase 65 U/L (45-117); Aspartate Amino Transferase 22 U/L (0-37); Bilirubin,Indirect 0.4 MG/DL (0.0-1.0); Blood Urea Nitrogen 18 MG/DL (7-18); Calcium 8.4 MG/DL (8.5-10.1); Glucose 123 MG/DL (74-106); Osmolality,Calculated 281.4 MOS/KG (273-304); Sodium 140 MMOL/L (136-145); Total Protein 6.3 G/DL (6.4-8.3)
[2018-08-21 05:41] LABS: Troponin I 0.279 NG/ML (0.00-0.045)
[2018-08-21] MEDS: LEVOTHYROXINE 88 MCG TABLET PO SCH (06:55)
[2018-08-21 08:14] VITALS: BP 126/80
[2018-08-21] MEDS: oxyCODONE/ACETAMINOPHEN 5-325 MG TABLET PO PRN (09:16)
[2018-08-21] MEDS: ASPIRIN EC 325 MG TABLET PO SCH (10:44)
[2018-08-21] MEDS: AMIODARONE 200 MG TABLET PO SCH (10:45)
[2018-08-21] MEDS: APIXABAN 5 MG TABLET PO SCH (10:45)
[2018-08-21] MEDS: CARVEDILOL 6.25 MG TABLET PO SCH (10:45)
[2018-08-21] MEDS: MULTIVITAMIN (CENTRUM) TABLET PO SCH (10:45)
[2018-08-21] MEDS: LOSARTAN 25 MG TABLET PO SCH (10:45)
[2018-08-21] MEDS: FERROUS SULFATE 325 MG TABLET PO SCH (10:45)
[2018-08-21] MEDS: CHLORHEXIDINE 0.12% ORAL RINSE 60 ML BOTTLE SWISH/SPIT SCH (10:46)
[2018-08-21] MEDS: METHOCARBAMOL 500 MG TABLET PO SCH (10:46)
[2018-08-21] MEDS: PANTOPRAZOLE 40 MG TABLET PO SCH (10:46)
[2018-08-21] MEDS: MAGNESIUM CHLORIDE 64 MG TABLET PO SCH (10:48)
== END 2018-08-21 15:07 | disposition home health service (06) | DRG 234 ==
LOC: N.CL 10:32 → N.TELES 14:16 → N.CVR 08-15 08:12 → N.TELES 08-16 12:34
PROVIDERS: ADMIT Internal Medicine Cardiovascular Disease; ATTEND Internal Medicine Cardiovascular Disease

== ENCOUNTER 2022-04-07 11:51 | Inpatient (IN) ==
[2022-04-07] MEDS ORDERED: SODIUM CHLORIDE 0.9% 500 ML IV STA (13:16)
[2022-04-07 13:27] LABS: Basophils % 0.1 % (0.0-0.8); Eosinophils # 0.1 10*3/uL (0.0-0.87); Eosinophils % 0.7 % (0.00-10.9); Hematocrit 43.9 VOL% (42.0-52.0); Hemoglobin 14.6 GM/DL (14.0-18.0); Immature Granulocytes % 1.1 %; Lymphocytes # 0.2 10*3/uL (1.4-4.0); Lymphocytes % 1.2 % (21.2-54.2); Mean Corpuscular HGB Conc 33.3 GM/DL (32-36); Mean Corpuscular Volume 93.4 FL (87-102); Mean Platelet Volume 9.8 FL (9.6-12.0); Monocytes # 0.9 10*3/uL (0.11-0.8); Neutrophils % 91.9 % (38.7-73.9); Platelet Count 219 T/CUMM (130-400); Red Cell Distribution Width 12.9 % (9.3-17.3)
[2022-04-07 13:37] LABS: Albumin 3.6 G/DL (3.4-5.0); Bilirubin,Total 0.7 MG/DL (0.20-1.00); Osmolality,Calculated 274.2 MOS/KG (273-304); Potassium 4.4 MMOL/L (3.5-5.1); Total Protein 7.7 G/DL (6.4-8.2)
[2022-04-07 13:51] LABS: Band Neutrophils 4 % (0-10); Lymphocytes 1 % (20-55); Total Cells Counted 100
[2022-04-07 13:52] LABS: Platelet Estimate Adequate
[2022-04-07] MEDS ORDERED: SODIUM CHLORIDE 0.9% 1,500 ML IV STA (14:00)
[2022-04-07] MEDS ORDERED: PIPERACILLIN/TAZOBACTAM 3,375 MG in SODIUM CHLORIDE 0.9% 100 ML IV STA (14:37)
[2022-04-07] MEDS ORDERED: ALBUTEROL 2.5 MG/3 ML NEB RESP TX PRN (15:09)
[2022-04-07] MEDS ORDERED: LACTATED RINGERS 2,000 ML IV ONE (15:09)
[2022-04-07] MEDS ORDERED: ONDANSETRON 4 MG/2 ML VIAL IV PRN (15:09)
[2022-04-07] MEDS ORDERED: HYDROCORTISONE 100 MG VIAL IV STA (15:15)
[2022-04-07] MEDS ORDERED: NOREPINEPHRINE 8 MG in SODIUM CHLORIDE 0.9% 242 ML IV PRN (15:16)
[2022-04-07 16:13] LABS: Bilirubin,Urine Negative (Negative); Blood, Urine Moderate mg/dL (Negative); Glucose,Urine (UA) Negative (Negative); Hyaline Casts,Urine 27 /LPF (0-3); Ketones,Urine 5 mg/dL (Negative); Mucus,Urine Occasional /LPF (Occasional); Nitrite,Urine Negative (Negative); Protein,Urine 30 mg/dL (Negative); RBC,Urine 29 /HPF (0-4); Urine Appearance Slightly Hazy (Clear); Urine Color Amber (Yellow); Urine Specific Gravity 1.021 (1.001-1.035); Urine Urobilinogen < 2.0 eU/dL (<2.0)
[2022-04-07] MEDS: LACTATED RINGERS 1,000 ML IV SCH (17:00)
[2022-04-07] MEDS: INSULIN LISPRO 100 UNIT/ML SUBCUT SCH ×2 (17:24→20:54)
[2022-04-07] MEDS ORDERED: LEVOFLOXACIN INJ 750 MG/150 ML PREMIX IV SCH (18:00)
[2022-04-07] MEDS: ACETAMINOPHEN 500 MG TABLET PO SCH (20:54)
[2022-04-07] MEDS: APIXABAN 5 MG TABLET PO SCH (20:54)
[2022-04-07] MEDS: HYDROCORTISONE 100 MG VIAL IV SCH (20:55)
[2022-04-08] MEDS: LACTATED RINGERS 1,000 ML IV SCH (02:05)
[2022-04-08] MEDS: HYDROCORTISONE 100 MG VIAL IV SCH ×4 (02:32→20:42)
[2022-04-08 04:37] LABS: Basophils % 0.1 % (0.0-0.8); Eosinophils # 0.1 10*3/uL (0.0-0.87); Eosinophils % 0.7 % (0.00-10.9); Hematocrit 36.2 VOL% (42.0-52.0); Immature Granulocytes % 0.7 %; Immature Granulocytes Absolute 0.09 #; Lymphocytes # 0.5 10*3/uL (1.4-4.0); Lymphocytes % 3.9 % (21.2-54.2); Mean Corpuscular HGB Conc 33.1 GM/DL (32-36); Mean Corpuscular Volume 92.6 FL (87-102); Mean Platelet Volume 9.4 FL (9.6-12.0); Monocytes # 0.4 10*3/uL (0.11-0.8); Monocytes % 2.9 % (1.7-12.7); Neutrophils % 91.7 % (38.7-73.9); Platelet Count 173 T/CUMM (130-400); Red Blood Count 3.91 MC/CUMM (3.8-5.5); Red Cell Distribution Width 12.9 % (9.3-17.3); White Blood Count 13.6 T/CUMM (4-12)
[2022-04-08 04:50] LABS: INR 1.2; PT Patient Result 12.9 SECS (10.1-12.1)
[2022-04-08 05:05] LABS: Albumin 2.7 G/DL (3.4-5.0); Bilirubin,Total 0.4 MG/DL (0.20-1.00); Calcium 8.6 MG/DL (8.5-10.1); Osmolality,Calculated 275.1 MOS/KG (273-304); Potassium 4.6 MMOL/L (3.5-5.1); Risk Ratio 1.76; Total Protein 6.1 G/DL (6.4-8.2); VLDL Cholesterol 15.6 MG/DL
[2022-04-08 05:12] LABS: Lymphocytes 3 % (20-55); Platelet Estimate Adequate; Total Cells Counted 100
[2022-04-08] MEDS: LEVOTHYROXINE 88 MCG TABLET PO SCH (06:07)
[2022-04-08] MEDS: INSULIN LISPRO 100 UNIT/ML SUBCUT SCH ×4 (09:07→20:42)
[2022-04-08] MEDS: MULTIVITAMIN (CENTRUM) TABLET PO SCH (09:15)
[2022-04-08] MEDS: ACETAMINOPHEN 500 MG TABLET PO SCH ×2 (09:16→20:41)
[2022-04-08] MEDS: APIXABAN 5 MG TABLET PO SCH ×2 (09:16→20:41)
[2022-04-08] MEDS: ASPIRIN EC 81 MG TABLET PO SCH (09:16)
[2022-04-08] MEDS: DESITIN 4OZ/NYSTATIN 15 GRAM MIXTURE PASTE TOP SCH (20:42)
[2022-04-08 21:09] VITALS: BP 108/64
[2022-04-09] MEDS: HYDROCORTISONE 100 MG VIAL IV SCH ×4 (03:40→21:08)
[2022-04-09 04:10] LABS: Basophils % 0.1 % (0.0-0.8); Eosinophils # 0.1 10*3/uL (0.0-0.87); Eosinophils % 0.5 % (0.00-10.9); Hematocrit 34.6 VOL% (42.0-52.0); Hemoglobin 11.5 GM/DL (14.0-18.0); Immature Granulocytes % 0.6 %; Immature Granulocytes Absolute 0.06 #; Lymphocytes % 8.9 % (21.2-54.2); Mean Corpuscular HGB Conc 33.2 GM/DL (32-36); Mean Platelet Volume 9.2 FL (9.6-12.0); Monocytes # 0.7 10*3/uL (0.11-0.8); Monocytes % 6.8 % (1.7-12.7); Neutrophils % 83.1 % (38.7-73.9); Platelet Count 201 T/CUMM (130-400); Red Blood Count 3.76 MC/CUMM (3.8-5.5); Red Cell Distribution Width 12.9 % (9.3-17.3); White Blood Count 10.7 T/CUMM (4-12)
[2022-04-09 04:24] LABS: Calcium 8.7 MG/DL (8.5-10.1); Osmolality,Calculated 274.5 MOS/KG (273-304); Potassium 4.4 MMOL/L (3.5-5.1)
[2022-04-09] MEDS: LEVOTHYROXINE 88 MCG TABLET PO SCH (06:07)
[2022-04-09] MEDS: ASPIRIN EC 81 MG TABLET PO SCH (08:56)
[2022-04-09] MEDS: DESITIN 4OZ/NYSTATIN 15 GRAM MIXTURE PASTE TOP SCH ×2 (08:56→21:08)
[2022-04-09] MEDS: ACETAMINOPHEN 500 MG TABLET PO SCH ×2 (08:56→21:08)
[2022-04-09] MEDS: MULTIVITAMIN (CENTRUM) TABLET PO SCH (08:56)
[2022-04-09] MEDS: INSULIN LISPRO 100 UNIT/ML SUBCUT SCH ×4 (08:56→21:08)
[2022-04-09] MEDS: APIXABAN 5 MG TABLET PO SCH ×2 (08:56→21:07)
[2022-04-09] MEDS: LEVOFLOXACIN 500 MG TABLET PO SCH (14:15)
[2022-04-09] MEDS ORDERED: LIDOCAINE 2% TOP JELLY 20 ML VIAL INTRAURETH PRN (16:00)
[2022-04-09] MEDS: METHOCARBAMOL 500 MG TABLET PO SCH (21:07)
[2022-04-09] MEDS: TAMSULOSIN 0.4 MG CAPSULE PO SCH (21:07)
[2022-04-09] MEDS: PANTOPRAZOLE 40 MG VIAL IV SCH (21:09)
[2022-04-10] MEDS: HYDROCORTISONE 100 MG VIAL IV SCH ×2 (03:53→08:29)
[2022-04-10 04:22] LABS: Basophils % 0.1 % (0.0-0.8); Eosinophils % 0.2 % (0.00-10.9); Hematocrit 35.1 VOL% (42.0-52.0); Hemoglobin 11.8 GM/DL (14.0-18.0); Immature Granulocytes % 0.9 %; Immature Granulocytes Absolute 0.08 #; Lymphocytes # 1.1 10*3/uL (1.4-4.0); Lymphocytes % 12.4 % (21.2-54.2); Mean Corpuscular HGB Conc 33.6 GM/DL (32-36); Mean Corpuscular Volume 91.4 FL (87-102); Mean Platelet Volume 9.2 FL (9.6-12.0); Monocytes # 0.6 10*3/uL (0.11-0.8); Monocytes % 6.8 % (1.7-12.7); Neutrophils % 79.6 % (38.7-73.9); Platelet Count 214 T/CUMM (130-400); Red Blood Count 3.84 MC/CUMM (3.8-5.5); Red Cell Distribution Width 12.9 % (9.3-17.3); White Blood Count 8.8 T/CUMM (4-12)
[2022-04-10 04:36] LABS: Calcium 8.6 MG/DL (8.5-10.1); Osmolality,Calculated 276.1 MOS/KG (273-304); Potassium 4.2 MMOL/L (3.5-5.1)
[2022-04-10] MEDS: LEVOTHYROXINE 88 MCG TABLET PO SCH (05:57)
[2022-04-10] MEDS: INSULIN LISPRO 100 UNIT/ML SUBCUT SCH (08:15)
[2022-04-10] MEDS: PANTOPRAZOLE 40 MG VIAL IV SCH (08:28)
[2022-04-10] MEDS: TAMSULOSIN 0.4 MG CAPSULE PO SCH (08:28)
[2022-04-10] MEDS: LEVOFLOXACIN 500 MG TABLET PO SCH (08:28)
[2022-04-10] MEDS: ASPIRIN EC 81 MG TABLET PO SCH (08:29)
[2022-04-10] MEDS: METHOCARBAMOL 500 MG TABLET PO SCH (08:29)
[2022-04-10] MEDS: APIXABAN 5 MG TABLET PO SCH (08:29)
[2022-04-10] MEDS: ACETAMINOPHEN 500 MG TABLET PO SCH (08:29)
[2022-04-10] MEDS: MULTIVITAMIN (CENTRUM) TABLET PO SCH (08:29)
[2022-04-10] MEDS: DESITIN 4OZ/NYSTATIN 15 GRAM MIXTURE PASTE TOP SCH (08:33)
== END 2022-04-10 12:20 | disposition home or self-care (01) | DRG 871 ==
LOC: N.ED 11:51 → N.EDINP 15:09 → SUATTDRO 15:09 → N.EDINP 16:47 → N.CC 17:07
PROVIDERS: ADMIT Internal Medicine; ATTEND Internal Medicine